=== PATIENT | female | born 1940 | race Caucasian/White ===

== ENCOUNTER 2023-02-27 10:30 | Emergency (ER) | payer MEDICARE | END 2023-02-27 12:00 | disposition home or self-care (01) | LOC: FB.ED 10:30 | DX: N61.0 Mastitis without abscess (principal); I10 Essential (primary) hypertension; Z92.3 Personal history of irradiation; Z79.82 Long term (current) use of aspirin; Z79.899 Other long term (current) drug therapy | CPT/HCPCS: 99283 ==

== ENCOUNTER 2023-06-09 15:45 | Observation (INO) | payer MEDICARE ==
[2023-06-09] MEDS ORDERED: Acetaminophen 325 MG Tab PO PRN (16:55)
[2023-06-09] MEDS ORDERED: Polyethylene Glycol 3350 Powder 17 GM Packet PO PRN (16:55)
[2023-06-09] MEDS ORDERED: Ondansetron 4 MG Tab.DIS PO PRN (16:55)
[2023-06-09] MEDS ORDERED: Acetaminophen/HYDROcodone 325-5 MG Tab PO PRN (16:55)
[2023-06-09] MEDS: Sodium Chloride 0.9% 10 ML Syringe FLUSH PRN (17:04)
[2023-06-09 17:13] LABS: BASOPHILS PERCENT AUTO 0.2 % (0.2-1.5); EOSINOPHILS PERCENT AUTO 0.6 % (0.6-8.1); HEMATOCRIT 36.2 % (34.2-48.2); HEMOGLOBIN 11.8 g/dL (11.4-15.5); LYMPHOCYTES ABSOLUTE AUTO 0.8 x10-3/uL (1.0-4.4); LYMPHOCYTES PERCENT AUTO 15.1 % (18.4-52.1); MEAN CORPUSCULAR HEMOGLOBIN 28.6 pg (23.9-33.9); MEAN CORPUSCULAR HGB CONC 32.6 g/dL (31.9-34.8); MEAN CORPUSCULAR VOLUME 87.7 fL (76.7-100.5); MEAN PLATELET VOLUME 8.9 fL (7.1-12.4); MONOCYTES ABSOLUTE AUTO 0.7 x10-3/uL (0.3-1.0); MONOCYTES PERCENT AUTO 12.8 % (4.4-15.7); NEUTROPHILS PERCENT AUTO 71.3 % (30.8-76.2); PLATELET COUNT,PLT 165 x10(3)uL (151-488); RED BLOOD CELL COUNT 4.13 x10(6)uL (3.60-5.20); RED CELL DISTRIBUTION WIDTH 13.8 % (12.3-16.5); WHITE BLOOD CELL COUNT,WBC 5.6 x10-3/uL (3.0-10.3)
[2023-06-09 17:20] LABS: BLOOD UREA NITROGEN,BUN 20 mg/dL (7-18); CALCIUM 9.1 mg/dL (8.6-10.2); CARBON DIOXIDE,CO2 28 mmol/L (21-32); CHLORIDE,CL 100 mmol/L (100-110); CREATININE 0.8 mg/dL (0.55-1.02); ESTIMATED GFR 74 mL/min (>60); GLUCOSE RANDOM 106 mg/dL (80-116); POTASSIUM,K 3.6 mmol/L (3.5-5.3); SODIUM,NA 137 mmol/L (135-145)
[2023-06-09] MEDS: VANCOmycin 1.5 GM/300 ML 1.5 GM in Premix Bag 1 BAG IV SCH (18:32)
[2023-06-09] MEDS: Enoxaparin 40 MG/0.4 ML Syringe SUBCUT SCH (20:24)
[2023-06-10] MEDS ORDERED: Albuterol 6.7 GM Inhaler INH PRN (08:13)
[2023-06-10] MEDS ORDERED: Formoterol/Mometasone 200-5 MCG 8.8 GM Inhaler IH PRN (08:23)
[2023-06-10] MEDS: Anastrozole 1 MG Tab PO SCH (09:16)
[2023-06-10] MEDS: amLODIPine 5 MG Tab PO SCH (09:16)
[2023-06-10] MEDS: Furosemide 40 MG Tab PO SCH (09:16)
[2023-06-10] MEDS: Aspirin 81 MG Tab.EC PO SCH (09:16)
[2023-06-10] MEDS: Metoprolol Succinate 25 MG Tab.ER PO SCH (09:17)
[2023-06-10] MEDS: FLUoxetine 20 MG Cap PO SCH (09:17)
[2023-06-10] MEDS: VANCOmycin 1.5 GM/300 ML 1.5 GM in Premix Bag 1 BAG IV ONE (12:12)
== END 2023-06-10 14:25 | disposition home or self-care (01) ==
LOC: FB.MS 15:45
PROVIDERS: ADMIT Family Medicine; ATTEND Family Medicine
DX: C50.911 Malignant neoplasm of unspecified site of right female breast (principal); I25.10 Atherosclerotic heart disease of native coronary artery without angina pectoris; I10 Essential (primary) hypertension; Z95.2 Presence of prosthetic heart valve; Z79.82 Long term (current) use of aspirin; Z79.899 Other long term (current) drug therapy
CPT/HCPCS: 36415; 80048; 85025; 96365; 96366; 96372; 99222; 99238; A9270-GY; G0378; G0379; J1650; J3370; J3490